=== PATIENT | female | born 1940 | race African-American/Black ===

== ENCOUNTER → 2017-03-29 | Outpatient (CLI) | payer MEDICARE, BC ==
--- NOTE | 2017-03-30 10:10 | RAD ---
DATE: 03/29/2017 EXAM: DIGITAL SCREEN BILAT W/CAD HISTORY: Screening COMPARISON: One year earlier This study was interpreted with the benefit of Computerized Aided Detection (CAD). FINDINGS: Breast Density: SCATTERED The breast parenchyma shows scattered fibroglandular densities. Breast parenchyma level B. There has been little change in the appearance of the breasts compared to the previous exam IMPRESSION: Benign findings BI-RADS CATEGORY: 2 BENIGN FINDING(S) RECOMMENDED FOLLOW-UP: 12M 12 MONTH FOLLOW-UP PQRS compliance statement: Patient information was entered into a reminder system with a target due date 03/29/2018 for the next mammogram. Mammography is a sensitive method for finding small breast cancers, but it does not detect them all and is not a substitute for careful clinical examination. A negative mammogram does not negate a clinically suspicious finding and should not result in delay in biopsying a clinically suspicious abnormality. "Our facility is accredited by the [employer] Mammography Program."
== END | disposition home or self-care (01) ==
LOC: MAMMO 15:04
PROVIDERS: ATTEND Obstetrics & Gynecology
DX: Z12.31 Encounter for screening mammogram for malignant neoplasm of breast (principal)
CPT/HCPCS: G0202; 77067

== ENCOUNTER → 2018-05-23 | Outpatient (CLI) | payer MEDICARE, BC ==
--- NOTE | 2018-05-25 11:49 | RAD ---
DATE: 05/23/2018 EXAM: MAMMO ROSE SCREENING BILATERAL HISTORY: Routine screening COMPARISON: 03/29/2017, 03/28/2016, 03/16/2015, 03/20/2014, 03/26/2013, 03/15/2013 Bilateral CC and MLO views of the breasts were performed. Bilateral breast tomosynthesis was performed in CC and MLO projections. This study was interpreted with the benefit of Computerized Aided Detection (CAD). The breast parenchyma is primarily fatty replaced. Breast parenchyma level density A. FINDINGS: Benign calcifications are present. No suspicious masses, microcalcifications or architectural distortion is present to suggest malignancy in either breast. The visualized axillae are unremarkable. IMPRESSION: No mammographic evidence of malignancy. BI-RADS CATEGORY: 2 BENIGN FINDING(S) RECOMMENDED FOLLOW-UP: 12M 12 MONTH FOLLOW-UP Annual screening mammography is recommended, unless clinically indicated sooner based on symptoms or change in physical exam. PQRS compliance statement: Patient information was entered into a reminder system with a target due date for the next mammogram. Mammography is a sensitive method for finding small breast cancers, but it does not detect them all and is not a substitute for careful clinical examination. A negative mammogram does not negate a clinically suspicious finding and should not result in delay in biopsying a clinically suspicious abnormality. "Our facility is accredited by the [employer] Mammography Program."
== END | disposition home or self-care (01) ==
LOC: MAMMO 15:27
PROVIDERS: ATTEND Nurse Practitioner
DX: Z12.31 Encounter for screening mammogram for malignant neoplasm of breast (principal)
CPT/HCPCS: 77063; 77067

== ENCOUNTER 2018-10-30 15:31 | Emergency (ER) | payer MEDICARE, BC ==
[~2018-10-30] VITALS: Ht 161.3 cm; Wt 113.4 kg
[2018-10-30 16:00] VITALS: BP 161/77
--- NOTE | 2018-10-30 16:03 | PHYS DOC ---
Adult General Chief Complaint Chief Complaint: HIP PAIN HPI HPI Patient is a 78 year old female with a history of hypertension who presents today complaining of 8 out of 10 bilateral knee and hip pain that has been going on for 1 month. Patient states she slipped on ice a month ago and fell landing on her buttocks. Patient denies any loss of consciousness. Denies any chance she hit her head on the ground. She is up and ambulating. She states her daughter would like her to be checked out to make sure everything is okay. She has an appointment with her own PCP next month. (MOJGAN ERICKSON APRN) Review of Systems Review of Systems Constitutional: Denies fever or chills [] Eyes: Denies change in visual acuity, redness, or eye pain [] HENT: Denies nasal congestion or sore throat [] Respiratory: Denies cough or shortness of breath [] Cardiovascular: No additional information not addressed in HPI [] GI: Denies abdominal pain, nausea, vomiting, bloody stools or diarrhea [] : Denies dysuria or hematuria [] Musculoskeletal: Reports bilateral hip and knee pain Integument: Denies rash or skin lesions [] Neurologic: Denies headache, focal weakness or sensory changes [] All other systems were reviewed and found to be within normal limits, except as documented in this note. (MOJGAN ERICKSON APRN) Allergies Allergies Allergies Coded Allergies Type Severity Reaction Last Updated Verified No Known Drug Allergies 10/30/18 No (RAZ DEMPSEY MD) Physical Exam Physical Exam Constitutional: Well developed, well nourished, no acute distress, non-toxic appearance. [] HENT: Normocephalic, atraumatic, bilateral external ears normal, oropharynx moist, no oral exudates, nose normal. [] Eyes: PERRLA, EOMI, conjunctiva normal, no discharge. [] Neck: Normal range of motion, no tenderness, supple, no stridor. [] Cardiovascular:Heart rate regular rhythm, no murmur [] Lungs & Thorax: Bilateral breath sounds clear to auscultation [] Abdomen: Bowel sounds normal, soft, no tenderness, no masses, no pulsatile masses. [] Skin: Warm, dry, no erythema, no rash. [] Back: No tenderness, no CVA tenderness. [] Extremities: No tenderness, no cyanosis, no clubbing, ROM intact, no edema. [] Neurologic: Alert and oriented X 3, normal motor function, normal sensory function, no focal deficits noted. [] Psychologic: Affect normal, judgement normal, mood normal. [] (MOJGAN ERICKSON APRN) Current Patient Data Vital Signs Vital Signs Date Time Temp Pulse Resp B/P (MAP) Pulse Ox O2 Delivery O2 Flow Rate FiO2 10/30/18 16:00 98.0 91 20 161/77 (105) 94 Room Air 98.0 (RAZ DEMPSEY MD) EKG EKG [] (MOJGAN ERICKSON APRN) Radiology/Procedures Radiology/Procedures []PROCEDURE: HIP BILATERAL WITH PELVIS Pelvis and bilateral hip radiographs 10/30/2018 INDICATION: Fall 3 weeks ago. COMPARISON: Hip radiograph September 04, 2007 TECHNIQUE: 2 AP views of the pelvis and single dedicated view of each hip is provided. FINDINGS: Right hip arthroplasty is identified with femoral and acetabular components in expected alignment. There may be subtle lucency along the subtrochanteric lateral aspect of the right proximal femur. Superior and inferior pubic rami are intact. Left total hip arthroplasty is identified with components in the sagittal alignment. No lucency is identified surrounding the hardware. Sacroiliac joints are well aligned. IMPRESSION: There may be subtle lucency along the right lateral subtrochanteric region of the right hip hardware suggestive of fracture. Correlate with site of point tenderness. If there is persistent clinical concern, cross-sectional imaging may be of benefit. Left total hip arthroplasty without evidence for hardware failure or acute fracture. Electronically signed by: Alba Whitfield MD (10/30/2018 4:54 PM) [facility] DICTATED and SIGNED BY: ALBA WHITFIELD MD DATE: 10/30/18 1651 PROCEDURE: KNEE BILAT 3V Bilateral knee radiograph 10/30/2018 INDICATION: Trauma after fall 3 weeks ago. Pain in bilateral knees. COMPARISON: Right knee radiograph July 21, 2009 TECHNIQUE: 3 views of the right and 3 views of the left knee are provided. FINDINGS: Bilateral total knee arthroplasties are identified. Components are in expected alignment. No lucency is identified surrounding the hardware to suggest subsidence or hardware failure. No significant knee joint effusions. Vascular calcification is identified in the left knee. IMPRESSION: Bilateral total knee arthroplasty without evidence for hardware failure or acute fracture. Electronically signed by: Alba Whitfield MD (10/30/2018 4:51 PM) [facility] DICTATED and SIGNED BY: ALBA WHITFIELD MD DATE: 10/30/18 1649 PROCEDURE: CT LOWER EXTREMITY WO RIGHT Examination: CT LOWER EXTREMITY WO RIGHT History: possible right hip fx
FELL ON AUGUST Comparison/Correlation: None Findings: Axial images of the right hip were obtained without contrast. Topogram demonstrates bilateral total hip joint prostheses. No evidence of loosening suggested on basis of the topogram. Streak artifact due to the right hip joint prosthesis can limit evaluation for fine detail. Low lumbar spine vacuum disc phenomenon and vacuum facet joint phenomenon evident. Mild anterolisthesis of L4 in relation L5 is noted. Degenerative changes of symphysis pubis are present. No displaced fracture or bony destructive finding. Soft tissues about the right hip are unremarkable. Appendix is present and normal. Impression: No acute fracture. Right hip joint prosthesis is intact. Electronically signed by: Bernardo Hill MD (10/30/2018 5:30 PM) [facility] DICTATED and SIGNED BY: BERNARDO HILL MD DATE: 10/30/18 1720 (MOJGAN ERICKSON APRN) Course & Med Decision Making Course & Med Decision Making Pertinent Labs and Imaging studies reviewed. (See chart for details) This is a 6-year-old female patient presenting to the ED today with bilateral hip and knee pain that began a month ago after she fell. Patient arrived in the ED ambulating on her own with no difficulties. Bilateral knee x-rays interpreted by radiologist were negative for any acute findings. Bilateral hip x-rays including pelvis interpreted by radiologist were noted for questionable right trochanteric fracture. CT of the right lower extremity was done which was negative for any fracture. Patient was discharged to home to follow-up with orthopedic doctor and PCP. (MOJGAN ERICKSON APRN) Course & Med Decision Making The chart was reviewed. Agree with the plan of care. (RAZ DEMPSEY MD) Dragon Disclaimer Dragon Disclaimer This electronic medical record was generated, in whole or in part, using a voice recognition dictation system. (MOJGAN ERICKSON APRN) Departure Departure Impression: Primary Impression: Fall from standing Additional Impressions: Bilateral knee pain Bilateral hip pain Disposition: HOME, SELF-CARE Condition: STABLE Referrals: [facility] (PCP) follow up as soon as you can Patient Instructions: Fall Prevention and Home Safety, Hip Pain, Knee Pain, [id number] Additional Instructions: You were evaluated in the emergency room for bilateral knee and bilateral hip x- rays, your imaging was negative for any acute findings. Please follow-up with the orthopedic doctor and primary care doctor as soon as you can. Scripts Hydrocodone/Apap 5-325 (NORCO 5-325 TABLET) 1 Each Tablet 1 TAB PO Q8HRS PRN for PAIN, #20 TAB Prov: MOJGAN ERICKSON DIRECTOR OF ACQUISITIONS 10/30/18 Problem Qualifiers Primary Impression: Fall from standing Encounter type: initial encounter Qualified Codes: W19.XXXA - Unspecified fall, initial encounter Additional Impressions: Bilateral knee pain Chronicity: acute Qualified Codes: M25.561 - Pain in right knee; M25.562 - Pain in left knee MOJGAN ERICKSON DIRECTOR OF ACQUISITIONS Oct 30, 2018 16:03 RAZ DEMPSEY MD Oct 31, 2018 10:35
--- NOTE | 2018-10-30 16:55 | RAD ---
Bilateral knee radiograph 10/30/2018 INDICATION: Trauma after fall 3 weeks ago. Pain in bilateral knees. COMPARISON: Right knee radiograph July 21, 2009 TECHNIQUE: 3 views of the right and 3 views of the left knee are provided. FINDINGS: Bilateral total knee arthroplasties are identified. Components are in expected alignment. No lucency is identified surrounding the hardware to suggest subsidence or hardware failure. No significant knee joint effusions. Vascular calcification is identified in the left knee. IMPRESSION: Bilateral total knee arthroplasty without evidence for hardware failure or acute fracture. Electronically signed by: Jazzy Flannery MD (10/30/2018 4:51 PM) [facility]
--- NOTE | 2018-10-30 16:58 | RAD ---
Pelvis and bilateral hip radiographs 10/30/2018 INDICATION: Fall 3 weeks ago. COMPARISON: Hip radiograph September 04, 2007 TECHNIQUE: 2 AP views of the pelvis and single dedicated view of each hip is provided. FINDINGS: Right hip arthroplasty is identified with femoral and acetabular components in expected alignment. There may be subtle lucency along the subtrochanteric lateral aspect of the right proximal femur. Superior and inferior pubic rami are intact. Left total hip arthroplasty is identified with components in the sagittal alignment. No lucency is identified surrounding the hardware. Sacroiliac joints are well aligned. IMPRESSION: There may be subtle lucency along the right lateral subtrochanteric region of the right hip hardware suggestive of fracture. Correlate with site of point tenderness. If there is persistent clinical concern, cross-sectional imaging may be of benefit. Left total hip arthroplasty without evidence for hardware failure or acute fracture. Electronically signed by: Jazzy Flannery MD (10/30/2018 4:54 PM) [facility]
--- NOTE | 2018-10-30 17:35 | RAD ---
Examination: CT LOWER EXTREMITY WO RIGHT History: possible right hip fx
FELL ON AUGUST Comparison/Correlation: None Findings: Axial images of the right hip were obtained without contrast. Topogram demonstrates bilateral total hip joint prostheses. No evidence of loosening suggested on basis of the topogram. Streak artifact due to the right hip joint prosthesis can limit evaluation for fine detail. Low lumbar spine vacuum disc phenomenon and vacuum facet joint phenomenon evident. Mild anterolisthesis of L4 in relation L5 is noted. Degenerative changes of symphysis pubis are present. No displaced fracture or bony destructive finding. Soft tissues about the right hip are unremarkable. Appendix is present and normal. Impression: No acute fracture. Right hip joint prosthesis is intact. Electronically signed by: Bernardo Kumar MD (10/30/2018 5:30 PM) [facility]
[2018-10-30] MEDS ORDERED: HYDR-3164 PO (18:09)
== END 2018-10-30 18:33 | disposition home or self-care (01) ==
LOC: ER 15:31
DX: M25.561 Pain in right knee (principal); M25.562 Pain in left knee; M25.551 Pain in right hip; M25.552 Pain in left hip; G89.11 Acute pain due to trauma; W00.0XXA Fall on same level due to ice and snow, initial encounter; Y93.89 Activity, other specified; Y92.89 Other specified places as the place of occurrence of the external cause; Y99.8 Other external cause status
CPT/HCPCS: 73521; 73562; 73700; 99284-25

== ENCOUNTER → 2019-05-27 | Outpatient (CLI) | payer MEDICARE, BC ==
[~2019-05-27] MED LIST: HYDR-3164 PO
--- NOTE | 2019-05-28 09:46 | RAD ---
DATE: 05/28/2019. EXAM: MAMMO ROSE SCREENING BILATERAL HISTORY: Routine screening. COMPARISON: Previous mammogram from 2018. This study was interpreted with the benefit of Computerized Aided Detection (CAD). FINDINGS: Breast Density: HETERO The breast parenchyma Is heterogeneously dense, which could reduce sensitivity of mammography. Breast parenchyma level C. The skin and nipples are within normal limits. No suspicious calcifications, spiculated mass or area of architectural distortion. IMPRESSION: No mammographic evidence of malignancy. BI-RADS CATEGORY: 2 BENIGN FINDING(S) RECOMMENDED FOLLOW-UP: 12M 12 MONTH FOLLOW-UP PQRS compliance statement: Patient information was entered into a reminder system with a target due date for the next mammogram. Mammography is a sensitive method for finding small breast cancers, but it does not detect them all and is not a substitute for careful clinical examination. A negative mammogram does not negate a clinically suspicious finding and should not result in delay in biopsying a clinically suspicious abnormality. "Our facility is accredited by the [employer] Mammography Program."
== END | disposition home or self-care (01) ==
LOC: MAMMO 13:57
PROVIDERS: ATTEND Internal Medicine
DX: Z12.31 Encounter for screening mammogram for malignant neoplasm of breast (principal)
CPT/HCPCS: 77063; 77067

== ENCOUNTER → 2019-10-10 | Outpatient (CLI) | payer MEDICARE, BC ==
[2019-09-30 15:05] VITALS: BP 148/66
[~2019-10-10] MED LIST changes: +ACET325T9 PO; +ASPI81TA50 PO; +CELE100C PO; +FURO-69 PO; +METO25TA4 PO; +OMEP20TA8 PO; +POTA20TA4 PO; +TRAM50TA PO
--- NOTE | 2019-10-16 18:22 | SLEEP ---
DATE OF STUDY: 10/10/2019 SLEEP STUDY ATTENDING PHYSICIAN: Asher Estes MD REFERRING PHYSICIAN: Fidel Guzman MD The patient is 79 years old who weighs 256 pounds with a BMI of 44. The patient's [place] score was 12. The patient underwent split night study performed at [facility]. During the night study, the patient spent 413 minutes in bed and slept for 345 minutes with a sleep efficiency of 84%. Sleep latency was 7 minutes with a REM latency of 279 minutes. Sleep architecture showed normal stage 1 sleep, increased stage 2 sleep, absent slow wave and reduced REM sleep. During the initial diagnostic portion of the study, the patient slept for 79 minutes. During that time, there were 22 obstructive apneas, 58 mixed apneas, 41 hypopneas and no central apneas. The patient's AHI was 93 per hour, supine AHI 93 per hour. REM sleep was not observed. EKG monitoring revealed normal sinus rhythm. Occasional PVCs seen. Average heart rate 70 beats per minute. No PLMS observed. Nocturnal oximetry study revealed a mean oxygen saturation of 89% with the lowest of 71%. A 49% of time oxygen saturation remained between 80% and 89% and 12% of time between 70% and 79%. The patient met the criteria for CPAP initiation. It was started at 5 cm water and titrated up to 20 cm water. The patient continued to have respiratory events and despite reaching 20 cm water, the patient's AHI was still 59 per hour from 145 minutes of sleep. Oxygen saturations did improve while on CPAP with saturations above 88%. The patient used small size full face mask. IMPRESSION: 1. Severe sleep apnea-hypopnea syndrome at an AHI of 93 per hour. The patient's obstructive sleep apnea did not resolve with maximum CPAP pressure of 20 cm water. 2. No clinically significant periodic limb movements. 3. Nocturnal hypoxia, secondary to obstructive sleep apnea. RECOMMENDATIONS: 1. The patient's sleep apnea was still persistent despite reaching maximum CPAP pressure of 20 cm water on this split night study. I would recommend that the patient should return to the sleep lab for BiPAP titration study, starting at a BiPAP pressure of 16 /12 and following the protocol. 2. Once the patient's chief optimum BiPAP pressure, then follow up in 4-6 weeks to assess compliance with BiPAP and to document clinical improvement. 3. Weight loss is strongly advised. 4. 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 5. Cautioned regarding driving until symptoms of sleep apnea resolved with above recommendations. FIDEL GUZMAN MD DR: ILEANA/ebenezer JOB#: [id number] / [id number] ASHER Carroll MD MTDD
== END | disposition home or self-care (01) ==
LOC: SLPLAB 19:36
PROVIDERS: ATTEND Internal Medicine Critical Care Medicine
DX: G47.33 Obstructive sleep apnea (adult) (pediatric) (principal); G47.34 Idiopathic sleep related nonobstructive alveolar hypoventilation
CPT/HCPCS: 95810

== ENCOUNTER → 2019-11-27 | Outpatient (CLI) | payer MEDICARE, BC ==
[2019-11-11 14:10] VITALS: BP 98/58
[~2019-11-27] MED LIST changes: +PRAV40TA2 PO; +PROP40TA PO; +SPIR25TA PO; +ZOLPIDEM 5 MG TABLET. PO PRN
--- NOTE | 2019-11-28 16:00 | SLEEP ---
DATE OF STUDY: 11/27/2019 REFERRING PHYSICIAN: Asher Estes MD The patient is an 79-year-old who weighs 236 pounds with a BMI of 42. The patient had a previous sleep study and was found to have severe ERINN at an AHI of 93 per hour. Optimum CPAP pressure was not achieved despite reaching 20 cm of water. She returned for a BiPAP titration study. During the night study, the patient spent 409 minutes in bed and slept for 261 minutes with a low sleep efficiency of 64%. Sleep latency was 69 minutes with a REM latency of 125 minutes. Sleep architecture showed normal stage 1 sleep, increased stage 2 sleep, normal slow wave and slightly reduced REM sleep. EKG monitoring revealed an average heart rate of 76 beats per minute. Occasional PVCs seen. No sustained arrhythmias observed. PLMS were seen at index of 55 per hour and 7 per hour caused EEG arousals. The patient was started on BiPAP at a pressure of 18/10. The pressure was increased up to 28/19; however, better results were obtained at a BiPAP pressure of 25/18. The patient slept for 156 minutes. The patient's AHI was reduced to 2 per hour and oxygen saturations remained above 90% with few desaturations in the mid 80s. IMPRESSION: 1. Severe sleep apnea diagnosed by previous sleep study. 2. Nocturnal hypoxia secondary to obstructive sleep apnea, resolved with BiPAP. 3. Severe PLMS. RECOMMENDATIONS: 1. BiPAP at a pressure of 25/18 should be used on a nightly basis. 2. Follow up in 4-6 weeks to assess compliance with BiPAP and to document clinical improvement. 3. Weight loss is strongly advised. 4. 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 5. Cautioned regarding driving until symptoms of sleep apnea resolve with the use of BiPAP. 6. The patient should also be further evaluated for symptoms of restless legs during the day. ZENAIDA ORTIZ MD DR: ILEANA/ebenezer JOB#: [id number] / [id number] [facility] ASHER ESTES MD
== END | disposition home or self-care (01) ==
LOC: RT 20:25
PROVIDERS: ATTEND Internal Medicine Critical Care Medicine
DX: G47.33 Obstructive sleep apnea (adult) (pediatric) (principal); G47.34 Idiopathic sleep related nonobstructive alveolar hypoventilation; G47.61 Periodic limb movement disorder
CPT/HCPCS: 95811

== ENCOUNTER 2020-06-24 17:05 | Inpatient (IN) | payer MEDICARE, BC ==
[~2020-06-24] VITALS: Ht 160 cm; Wt 110.6 kg
[~2020-06-24 17:05] MED LIST changes: -ZOLPIDEM 5 MG TABLET. PO PRN
[2020-06-24 18:03] LABS: BASO % 1 % (0-3); EOS # 0.1 x10^3/uL (0.0-0.7); EOS % 2 % (0-3); HEMATOCRIT 36.8 % (36.0-47.0); HEMOGLOBIN 12.3 g/dL (12.0-15.5); LYMPH # 1.1 x10^3/uL (1.0-4.8); LYMPH % 23 % (24-48); MEAN CORPUSCULAR HEMOGLOBIN 32 pg (25-35); MEAN CORPUSCULAR HGB CONC 33 g/dL (31-37); MEAN CORPUSCULAR VOLUME 95 fL (79-100); MONO # 0.5 x10^3/uL (0.0-1.1); MONO % 10 % (0-9); NEUT % 64 % (31-73); PLATELET COUNT 166 x10^3/uL (140-400); RED BLOOD COUNT 3.88 x10^6/uL (3.50-5.40); RED CELL DISTRIBUTION WIDTH 13.7 % (11.5-14.5); WHITE BLOOD COUNT 4.6 x10^3/uL (4.0-11.0)
[2020-06-24 18:07] LABS: CALCIUM 9.4 mg/dL (8.5-10.1); CREATININE 1.2 mg/dL (0.6-1.0)
[2020-06-24 18:13] LABS: ALBUMIN 3.6 g/dL (3.4-5.0); ALBUMIN/GLOBULIN RATIO 0.9 (1.0-1.7); MAGNESIUM 1.8 mg/dL (1.8-2.4); TOTAL BILIRUBIN 0.7 mg/dL (0.2-1.0); TOTAL PROTEIN 7.6 g/dL (6.4-8.2)
--- NOTE | 2020-06-24 18:20 | PHYS DOC ---
Past Medical History Past Medical History: Anxiety, Arthritis, Cancer, CHF, Depression, Hypertension, Other Additional Past Medical Histor: ovarian cancer Past Surgical History: Hip Replacement, Hysterectomy, Knee Replacement, Other Additional Past Surgical Histo: hemmorhoidectomy, radiation implant, uvula, bilat feet Smoking Status: Never Smoker Alcohol Use: Occasionally Drug Use: None General Adult EDM: Chief Complaint: SHORTNESS OF BREATH HPI: HPI: Patient is a 80 year old female who presents with a chief complaint of progressive shortness of breath. Patient describes orthopnea and dyspnea on exertion. Patient states she had increased swelling in her bilateral lower extremities. Patient denies any fevers chills but has had a mild cough. Patient denies any COVID-19 exposures. Patient denies any chest pain but had some back pain earlier that has since resolved. Symptoms are worse with laying flat and exertion. Pain in her back is nonradiating and currently 0 Review of Systems: Review of Systems: Constitutional: Denies fever or chills. [] Eyes: Denies change in visual acuity. [] HENT: Denies nasal congestion or sore throat. [] Respiratory: Complains of cough and shortness of breath Cardiovascular: Denies chest pain complains of bilateral lower extremity edema GI: Denies abdominal pain, nausea, vomiting, bloody stools or diarrhea. [] : Denies dysuria. [] Musculoskeletal: Denies current back pain or joint pain. [] Integument: Denies rash. [] Neurologic: Denies headache, focal weakness or sensory changes. [] Endocrine: Denies polyuria or polydipsia. [] Lymphatic: Denies swollen glands. [] Psychiatric: Denies depression or anxiety. [] Heart Score: Risk Factors: Risk Factors: DM, Current or recent (<one month) smoker, HTN, HLP, family history of CAD, obesity. Risk Scores: Score 0 - 3: 2.5% MACE over next 6 weeks - Discharge Home Score 4 - 6: 20.3% MACE over next 6 weeks - Admit for Clinical Observation Score 7 - 10: 72.7% MACE over next 6 weeks - Early Invasive Strategies Allergies: Allergies: Allergies Coded Allergies Type Severity Reaction Last Updated Verified sertraline Adverse Reaction Intermediate hallucinations 11/04/19 Yes Physical Exam: PE: Constitutional: Well developed, well nourished, no acute distress, non-toxic appearance. [] HENT: Normocephalic, atraumatic, bilateral external ears normal, no trismus, nose normal. [] Eyes: PERRLA, EOMI, conjunctiva normal, no discharge. [] Neck: Normal range of motion, no tenderness, supple, no stridor. [] Cardiovascular:Heart rate regular rhythm, peripheral pulse intact, cap refill brisk Lungs & Thorax: Diminished bilateral breath sounds Abdomen: Bowel sounds normal, soft, no tenderness, no masses, no pulsatile masses. [] Skin: Warm, dry, no erythema, no rash. [] Back: No tenderness, no CVA tenderness. [] Extremities: No tenderness, no cyanosis, no clubbing, ROM intact, 2+ bilateral extremity edema Neurologic: Alert and oriented X 3, normal motor function, normal sensory function, no focal deficits noted. [] Psychologic: Affect normal, judgement normal, mood normal. [] Current Patient Data: Labs: Laboratory Tests Test 06/24/20 17:50 White Blood Count 4.6 x10^3/uL (4.0-11.0) Red Blood Count 3.88 x10^6/uL (3.50-5.40) Hemoglobin 12.3 g/dL (12.0-15.5) Hematocrit 36.8 % (36.0-47.0) Mean Corpuscular Volume 95 fL (79-100) Mean Corpuscular Hemoglobin 32 pg (25-35) Mean Corpuscular Hemoglobin Concent 33 g/dL (31-37) Red Cell Distribution Width 13.7 % (11.5-14.5) Platelet Count 166 x10^3/uL (140-400) Neutrophils (%) (Auto) 64 % (31-73) Lymphocytes (%) (Auto) 23 % (24-48) L Monocytes (%) (Auto) 10 % (0-9) H Eosinophils (%) (Auto) 2 % (0-3) Basophils (%) (Auto) 1 % (0-3) Neutrophils # (Auto) 3.0 x10^3/uL (1.8-7.7) Lymphocytes # (Auto) 1.1 x10^3/uL (1.0-4.8) Monocytes # (Auto) 0.5 x10^3/uL (0.0-1.1) Eosinophils # (Auto) 0.1 x10^3/uL (0.0-0.7) Basophils # (Auto) 0.0 x10^3/uL (0.0-0.2) Sodium Level 141 mmol/L (136-145) Potassium Level 4.0 mmol/L (3.5-5.1) Chloride Level 105 mmol/L (98-107) Carbon Dioxide Level 30 mmol/L (21-32) Anion Gap 6 (6-14) Blood Urea Nitrogen 17 mg/dL (7-20) Creatinine 1.2 mg/dL (0.6-1.0) H Estimated GFR (Cockcroft-Gault) 52.0 BUN/Creatinine Ratio 14 (6-20) Glucose Level 136 mg/dL (70-99) H Calcium Level 9.4 mg/dL (8.5-10.1) Magnesium Level 1.8 mg/dL (1.8-2.4) Total Bilirubin 0.7 mg/dL (0.2-1.0) Aspartate Amino Transferase (AST) 30 U/L (15-37) Alanine Aminotransferase (ALT) 37 U/L (14-59) Alkaline Phosphatase 117 U/L (46-116) H Total Protein 7.6 g/dL (6.4-8.2) Albumin 3.6 g/dL (3.4-5.0) Albumin/Globulin Ratio 0.9 (1.0-1.7) L Laboratory Tests 06/24/20 17:50 Laboratory Tests 06/24/20 17:50 EKG: EKG: [] EKG interpreted by hi normal sinus rhythm with a left axis deviation and low voltage, nonspecific ST changes normal intervals Radiology/Procedures: Radiology/Procedures: [][facility] [address] [place] [address] IMAGING REPORT Signed PATIENT: BRENT STRONG ACCOUNT: [id number] : 1940 LOCATION: ER AGE: 80 SEX: F EXAM STATUS: REG ER ORD. PHYSICIAN: JERO SALAZAR MD REASON: edema PROCEDURE: VENOUS LOWER EXT BILATERAL EXAM: Bilateral lower extremity venous Doppler. HISTORY: Bilateral lower extremity pain/swelling. Shortness of breath. COMPARISON: None. FINDINGS: Grayscale and Doppler analysis of the both lower extremity deep venous systems was performed with graded compression and augmentation. The common femoral, greater saphenous, superficial femoral, popliteal and calf veins were assessed. There is no evidence of deep venous thrombosis. Subcutaneous edema is noted. IMPRESSION: 1. No evidence of deep venous thrombosis. Electronically signed by: Feliciano Jara MD (06/24/2020 7:06 PM) [facility] DI[facility]ATED and SIGNED BY: EUGENE JARA MD DATE: 06/24/201905 [facility] [address] [place] [address] IMAGING REPORT Signed PATIENT: BRENT STRONG ACCOUNT: [id number] : 1940 LOCATION: ER AGE: 80 SEX: F EXAM STATUS: REG ER ORD. PHYSICIAN: SHENG LEROY DO REASON: dyspnea PROCEDURE: PORTABLE CHEST 1V EXAM: AP View of the chest DATE: 06/24/2020 5:21 PM INDICATION: Reason: dyspnea / Spl. Instructions: / History: COMPARISON: 11/04/2019, 09/26/2019 FINDINGS: Moderate cardiomegaly is stable. Atherosclerotic calcifications of the tortuous aorta are seen. Bilateral pleural effusions and associated lung base opacities are now seen. Mild perihilar opacities with interstitial prominence. No pneumothorax. IMPRESSION: Constellation of findings is suspicious for pulmonary edema or multifocal consolidative process. Electronically signed by: Marino Tomlinson MD (06/24/2020 6:59 PM) [facility] DICTATED and SIGNED BY: MARINO TOMLINSON MD DATE: 06/24/20 515 Course & Med Decision Making: Course & Med Decision Making Pertinent Labs and Imaging studies reviewed. (See chart for details) [] 80-year-old female presents with CHF symptoms. Patient has a slightly positive troponin and evidence of CHF on x-ray and labs. Patient be admitted to Dr. Beckham with a cardiac consult. Patient needs echo to rule out pericardial effusion as well as to assess ejection fraction. aJson Disclaimer: Jason Disclaimer: This electronic medical record was generated, in whole or in part, using a voice recognition dictation system. Departure Departure Impression: Primary Impression: CHF (congestive heart failure) Disposition: 09 ADMITTED INPATIENT Admitting Physician: MADAI romero) Condition: STABLE Referrals: ASHER CHEW MD (PCP) Justicifation of Admission Dx: Justifications for Admission: Justification of Admission Dx: Yes (chf, positive troponin) JERO SALAZAR MD Jun 24, 2020 18:20
[2020-06-24] MEDS ORDERED: FUROSEMIDE 40 MG/4 ML VIAL. IVP ONE (18:30)
[2020-06-24] MEDS ORDERED: ASPIRIN 325 MG TABLET PO ONE (18:30)
[2020-06-24] MEDS ORDERED: ONDANSETRON PF 4 MG/2 ML VIAL. IV PRN (18:45)
--- NOTE | 2020-06-24 19:02 | RAD ---
EXAM: AP View of the chest DATE: 06/24/2020 5:21 PM INDICATION: Reason: dyspnea / Spl. Instructions: / History: COMPARISON: 11/04/2019, 09/26/2019 FINDINGS: Moderate cardiomegaly is stable. Atherosclerotic calcifications of the tortuous aorta are seen. Bilateral pleural effusions and associated lung base opacities are now seen. Mild perihilar opacities with interstitial prominence. No pneumothorax. IMPRESSION: Constellation of findings is suspicious for pulmonary edema or multifocal consolidative process. Electronically signed by: Marino Loja MD (06/24/2020 6:59 PM) [facility]
--- NOTE | 2020-06-24 19:09 | RAD ---
EXAM: Bilateral lower extremity venous Doppler. HISTORY: Bilateral lower extremity pain/swelling. Shortness of breath. COMPARISON: None. FINDINGS: Grayscale and Doppler analysis of the both lower extremity deep venous systems was performed with graded compression and augmentation. The common femoral, greater saphenous, superficial femoral, popliteal and calf veins were assessed. There is no evidence of deep venous thrombosis. Subcutaneous edema is noted. IMPRESSION: 1. No evidence of deep venous thrombosis. Electronically signed by: Feliciano Jara MD (06/24/2020 7:06 PM) [facility]
[2020-06-24 22:03] VITALS: BP 152/84
[2020-06-24] MEDS ORDERED: FURO40TA4 PO (22:09)
[2020-06-24] MEDS ORDERED: PROP60CA44 PO (22:35)
[2020-06-24] MEDS ORDERED: SPIR25TA5 PO (22:35)
[2020-06-24] MEDS ORDERED: POTA20TA4 PO (22:37)
--- NOTE | 2020-06-24 22:53 | EKG ---
[facility] [address] [place] [address] Test Date: 2020-06-24 Test Time: 18:09:06 Pat Name: BRENT STRONG Department: Room: 200 1 Gender: F [employer] Weaver: [id number] : 1940 Requested By: SHENG LEROY Order Number: [id number] Reading MD: Rock Mosqueda MD Measurements Intervals [place] Rate: 67 P: 90 CT: 204 QRS: -28 QRSD: 82 T: 70 QT: 420 QTc: 447 Interpretive Statements SINUS RHYTHM Electronically Signed On 06-25-2020 12:09:48 CDT by Rock Mosqueda MD
[2020-06-25 03:00] VITALS: BP 130/75
[2020-06-25] MEDS ORDERED: ACETAMINOPHEN 325 MG TABLET. PO PRN (05:00)
--- NOTE | 2020-06-25 05:35 | NUR ---
Patient arrived to unit at approx 2200 accompanied by senior technical architect. Patient on 2L NC for SOB on exertion and at rest. Patient reports no pain at this time. Assessment complete, VS stable. Patients daughter took all of her belongings home except for 1 ring. Patient states that she wishes to be DNR. Spoke with Dr. Beckham and made Pt DNR status, with two nurse verification (Leslee, RN & Abraham RN). patient reports that she uses a CPAP at home at , but is unsure if she has Sleep Apnea. Bed in low locked position, call light in reach, bed alarm on, Reminded patient to call for assistance before ambulating. Will continue to monitor.
[2020-06-25 07:00] VITALS: BP 155/74
[2020-06-25 07:50] LABS: BASO % 1 % (0-3); EOS # 0.1 x10^3/uL (0.0-0.7); EOS % 3 % (0-3); HEMATOCRIT 33.2 % (36.0-47.0); HEMOGLOBIN 11.3 g/dL (12.0-15.5); LYMPH # 1.1 x10^3/uL (1.0-4.8); LYMPH % 28 % (24-48); MEAN CORPUSCULAR HEMOGLOBIN 33 pg (25-35); MEAN CORPUSCULAR HGB CONC 34 g/dL (31-37); MEAN CORPUSCULAR VOLUME 96 fL (79-100); MONO # 0.5 x10^3/uL (0.0-1.1); MONO % 13 % (0-9); NEUT # 2.3 x10^3/uL (1.8-7.7); NEUT % 56 % (31-73); PLATELET COUNT 139 x10^3/uL (140-400); RED BLOOD COUNT 3.45 x10^6/uL (3.50-5.40); RED CELL DISTRIBUTION WIDTH 13.4 % (11.5-14.5); WHITE BLOOD COUNT 4.1 x10^3/uL (4.0-11.0)
[2020-06-25 08:13] LABS: CREATININE 1.1 mg/dL (0.6-1.0); GFR 57.5; POTASSIUM 3.9 mmol/L (3.5-5.1)
[2020-06-25] MEDS: ACETAMINOPHEN 325 MG TABLET. PO SCH ×2 (08:19→21:00)
[2020-06-25] MEDS: POTASSIUM CHLORIDE 20 MEQ TABLET.ER. PO SCH (08:20)
[2020-06-25] MEDS: ASPIRIN ENTERIC COATED 81 MG TABLET.DR. PO SCH (08:20)
[2020-06-25] MEDS: PROPRANOLOL ER 60 MG CAP.SA.24H. PO SCH (08:20)
[2020-06-25] MEDS: SPIRONOLACTONE 25 MG TABLET PO SCH (08:20)
[2020-06-25] MEDS: traMADol 50 MG TABLET PO SCH ×2 (08:23→21:31)
[2020-06-25] MEDS ORDERED: FUROSEMIDE 40 MG TABLET. PO SCH (09:00)
--- NOTE | 2020-06-25 09:56 | PDOC2 ---
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 Mix SOURCE Source: Chart review, Patient HISTORY OF PRESENT ILLNESS HISTORY OF PRESENT ILLNESS This is an 80 yo female who presented secondary to shortness of breath and LE edema. Patient reports she has been eating a lot of watermelon and cantaloupe recently. Noticed that he feet began swelling last week. Progressively worsened. Began feeling short of breath 2 days ago. Progressively worsened as well. Became significantly short of breath so she came to the ED for further evaluation and treatment. Symptoms associated with orthopnea. No chest pain, palpitations, dizziness, diaphoresis, or nausea/vomiting. PAST MEDICAL HISTORY Past Medical History Cardiovascular: CHF, HTN, Other (cor pulmonale; PAFIB ; recent small pericardial effusion) CENTRAL NERVOUS SYSTEM: Other (No pertinent history) GI: GERD Heme/Onc: No pertinent hx Hepatobiliary: No pertinent hx Psych: Anxiety Musculoskeletal: Osteoarthritis Rheumatologic: No pertinent hx Infectious disease: No pertinent hx ENT: No pertinent hx Renal/: UTI Endocrine: No pertinent hx Dermatology: No pertinent hx PAST SURGICAL HISTORY Past Surgical History: Tonsillectomy FAMILY HISTORY Family History: Heart Disease, Hypertension SOCIAL HISTORY Social History Smoke: No ALCOHOL: none Drugs: None Lives: with Family CURRENT MEDICATIONS CURRENT MEDICATIONS Current Medications Medications (Trade) Dose Ordered Sig/Moe Route PRN Reason Start Time Stop Time Status Last Admin Dose Admin Furosemide (Lasix) 40 mg 1X ONCE IVP 06/24/20 18:30 06/24/20 18:31 DC 06/24/20 19:03 Aspirin (Maddy Aspirin) 325 mg 1X ONCE PO 06/24/20 18:30 06/24/20 18:31 DC 06/24/20 19:02 Ondansetron HCl (Zofran) 4 mg PRN Q8HRS PRN IV NAUSEA/VOMITING 06/24/20 18:45 06/25/20 18:44 06/24/20 19:03 Acetaminophen (Tylenol) 325 mg BID PO 06/25/20 09:00 06/25/20 08:19 Aspirin (Ecotrin) 81 mg DAILYWBKFT PO 06/25/20 08:00 06/25/20 08:20 Furosemide (Lasix) 40 mg DAILY PO 06/25/20 09:00 06/25/20 08:20 Potassium Chloride (Klor-Con) 20 meq DAILYWBKFT PO 06/25/20 08:00 06/25/20 08:20 Propranolol HCl (Inderal La) 60 mg DAILY PO 06/25/20 09:00 06/25/20 08:20 Spironolactone (Aldactone) 25 mg DAILY PO 06/25/20 09:00 06/25/20 08:20 Tramadol HCl (Ultram) 37.5 mg BID PO 06/25/20 09:00 06/25/20 08:23 Acetaminophen (Tylenol) 650 mg PRN Q6HRS PRN PO PAIN 06/25/20 05:00 06/25/20 05:10 ALLERGIES ALLERGIES: Coded Allergies: sertraline (Verified Adverse Reaction, Intermediate, hallucinations, 11/04/19) ROS Review of System 14 point ROS conducted with pertinent positives noted above in HPI PHYSICAL EXAM PHYSICAL EXAM General: Alert, Oriented X3, Cooperative, mild distress HEENT: Atraumatic, Mucous membr. moist/pink Lungs: bibasilar crackles Heart: Regular rate (SR), Other 2/6 systolic murmur to LLS border) Abdomen: Soft, No tenderness, Other (obese) Extremities: No cyanosis, Other (3+ bilateral LE pitting edema) Skin: No breakdown, No significant lesion Neuro: Normal speech, Sensation intact Psych/Mental Status: Mental status NL, Mood NL MUSCULOSKELETAL: Osteoarthritic changes both hands VITALS/I&O VITALS/I&O: Vital Signs Date Time Temp Pulse Resp B/P (MAP) Pulse Ox O2 Delivery O2 Flow Rate FiO2 06/25/20 08:20 63 130/75 06/25/20 08:00 Nasal Cannula 2.0 06/25/20 07:00 97.7 20 96 97.7 I & O 06/24/20 06/24/20 06/25/20 15:00 23:00 07:00 Intake Total 50 ml Output Total 1150 ml Balance -1100 ml LABS Lab: Laboratory Tests Test 06/24/20 17:50 06/25/20 06:00 White Blood Count 4.6 x10^3/uL (4.0-11.0) 4.1 x10^3/uL (4.0-11.0) Red Blood Count 3.88 x10^6/uL (3.50-5.40) 3.45 x10^6/uL (3.50-5.40) L Hemoglobin 12.3 g/dL (12.0-15.5) 11.3 g/dL (12.0-15.5) L Hematocrit 36.8 % (36.0-47.0) 33.2 % (36.0-47.0) L Mean Corpuscular Volume 95 fL (79-100) 96 fL (79-100) Mean Corpuscular Hemoglobin 32 pg (25-35) 33 pg (25-35) Mean Corpuscular Hemoglobin Concent 33 g/dL (31-37) 34 g/dL (31-37) Red Cell Distribution Width 13.7 % (11.5-14.5) 13.4 % (11.5-14.5) Platelet Count 166 x10^3/uL (140-400) 139 x10^3/uL (140-400) L Neutrophils (%) (Auto) 64 % (31-73) 56 % (31-73) Lymphocytes (%) (Auto) 23 % (24-48) L 28 % (24-48) Monocytes (%) (Auto) 10 % (0-9) H 13 % (0-9) H Eosinophils (%) (Auto) 2 % (0-3) 3 % (0-3) Basophils (%) (Auto) 1 % (0-3) 1 % (0-3) Neutrophils # (Auto) 3.0 x10^3/uL (1.8-7.7) 2.3 x10^3/uL (1.8-7.7) Lymphocytes # (Auto) 1.1 x10^3/uL (1.0-4.8) 1.1 x10^3/uL (1.0-4.8) Monocytes # (Auto) 0.5 x10^3/uL (0.0-1.1) 0.5 x10^3/uL (0.0-1.1) Eosinophils # (Auto) 0.1 x10^3/uL (0.0-0.7) 0.1 x10^3/uL (0.0-0.7) Basophils # (Auto) 0.0 x10^3/uL (0.0-0.2) 0.0 x10^3/uL (0.0-0.2) Sodium Level 141 mmol/L (136-145) 144 mmol/L (136-145) Potassium Level 4.0 mmol/L (3.5-5.1) 3.9 mmol/L (3.5-5.1) Chloride Level 105 mmol/L (98-107) 104 mmol/L (98-107) Carbon Dioxide Level 30 mmol/L (21-32) 31 mmol/L (21-32) Anion Gap 6 (6-14) 9 (6-14) Blood Urea Nitrogen 17 mg/dL (7-20) 15 mg/dL (7-20) Creatinine 1.2 mg/dL (0.6-1.0) H 1.1 mg/dL (0.6-1.0) H Estimated GFR (Cockcroft-Gault) 52.0 57.5 BUN/Creatinine Ratio 14 (6-20) Glucose Level 136 mg/dL (70-99) H 77 mg/dL (70-99) Calcium Level 9.4 mg/dL (8.5-10.1) 9.0 mg/dL (8.5-10.1) Magnesium Level 1.8 mg/dL (1.8-2.4) Total Bilirubin 0.7 mg/dL (0.2-1.0) Aspartate Amino Transferase (AST) 30 U/L (15-37) Alanine Aminotransferase (ALT) 37 U/L (14-59) Alkaline Phosphatase 117 U/L (46-116) H Troponin I Quantitative 0.100 ng/mL (0.000-0.055) 0.130 ng/mL (0.000-0.055) XA-Hon-K-Type Natriuretic Peptide 7680 pg/mL (0-449) H Total Protein 7.6 g/dL (6.4-8.2) Albumin 3.6 g/dL (3.4-5.0) Albumin/Globulin Ratio 0.9 (1.0-1.7) L Laboratory Tests 06/24/20 17:50 06/25/20 06:00 Laboratory Tests 06/24/20 17:50 06/25/20 06:00 ECHOCARDIOGRAM ECHOCARDIOGRAM <Conclusion> The left ventricular systolic function is normal and the ejection fraction is within normal range. EF 55% Septal motion suggestive of conduction defect. Grossly normal wall motion. The right ventricle is moderately to severely dilated. The right ventricle is moderately hypertrophied. Doppler and Color Flow revealed mild tricuspid regurgitation with an estimated PAP of 67 mmHg, consistent with severe pulmonary HTN There is a small circumferential pericardial effusion without hemodynamic effects DATE: 09/16/19 1540 HEART CATH HEART CATH FINDINGS A. RIGHT HEART CATHETERIZATION 1. Intracardiac pressures: Mean right atrial pressure 15 mmHg, right ventricle pressure 70/4 mmHg, pulmonary artery pressure 76/29 mmHg, mean PA pressure 46 mmHg and mean pulmonary capillary wedge pressure 23 mmHg. This is consistent with moderate coronary hypertension. Patient also has elevated left-sided filling pressures with mean PCWP 23 mm working, probably from acute on chronic diastolic heart failure. 2. Oxygen saturations: Right atrium 69%, pulmonary artery 74%, arterial sheath 98.7%. No evidence of intracardiac shunt. 3. Cardiac output by thermodilution method 5.3 L/m and by Yesika method 4.97 L/m. B. LEFT HEART CATHETERIZATION 1. Hemodynamics: Left ventricle end diastolic pressure 25 mmHg. No pullback gradient across the aortic valve. 2. Coronary angiography: a. The left main coronary artery arose from the left sinus of Valsalva, gave rise to the left anterior descending and left circumflex arteries and did not show any significant stenosis. b. The left anterior descending artery did not show any significant stenosis. c. The left circumflex artery was a large and dominant vessel that did not show any significant stenosis. d. The right coronary artery was a small and nondominant vessel that did not show any significant stenosis. Conclusion 1. No significant coronary artery disease 2. Moderate pulmonary hypertension 3. No evidence of intracardiac shunt 4. Elevated left-sided filling pressures consistent with acute on chronic diastolic heart failure Recommendations Medical Therapy DATE: 09/30/19 1435 ASSESSMENT/PLAN ASSESSMENT/PLAN 1. Acute respiratory failure with acute on chronic diastolic CHF; LVEF 50% per echo 09/26. Secondary to diet noncompliance 2. Cor pulmonale with severe pulmonary HTN; PAP 67 mmHg 3. ERINN 4. Hypertension; controlled overall 5. Hyperlipidemia; statin 6. PAFIB; maintain SR 7. Mild troponin elevation; highest 0.130. Most probably type II, demand ischemia in setting of acute CHF. CP free. Recent cath without evidence of CAD as noted above 8. CKD; at baseline per review Recommendations Diuresis with monitoring of renal function 2Gm Na diet, 2000cc FR Encouraged weight loss Supportive care Routine outpatient echo to assess LV systolic function LESLIE ALVARADO MD 06/25/20 1628: CARDIAC CONSULT ASSESSMENT/PLAN ASSESSMENT/PLAN Pt. seen and examined. Agree with above MANAGER SPECIAL EVENTS note. Continue diuresis. ALETA BERRY APRN Jun 25, 2020 09:56 LESLIE ALVARADO MD Jun 25, 2020 16:28
[2020-06-25] MEDS: FUROSEMIDE 40 MG/4 ML VIAL. IVP SCH ×2 (10:28→14:42)
--- NOTE | 2020-06-25 10:52 | PDOC1 ---
History and Physical Date of Admission Date of Admission DATE: 06/25/20 TIME: 10:52 Source Source: Patient History of Present Illness History of Present Illness Ms Haji is an 80 yo female w/ PMHx HTN, GERD, paroxysmal afib, diastolic CHF, cor pulmonarle who presented secondary to shortness of breath and LE edema. She has also noted weight gain over the past 2 days. Eating a lot of watermelon and cantaloupe recently and drinking more fluids. She notes progressive orthopnea over the past week as well. Denies chest pain, palpitations, dizziness, diaphoresis, or nausea/vomiting. She does note back pain, only while laying flat. Labs significant for troponin 0.130 and BNP 7680, Hb 11.3, Cr 1.1. Venous dopplers negative for DVT, CXR with bilateral pleural effusions and associated perihilar opacities with interstitial prominence as well as cardiomegaly. EKG sinus rhythm with no abnormal st segment changes or TWI. Left axis deviation noted. Admitted for further care. Past Medical History Cardiovascular: CHF, HTN, Other CENTRAL NERVOUS SYSTEM: Other GI: GERD Heme/Onc: No pertinent hx Hepatobiliary: No pertinent hx Psych: Anxiety Musculoskeletal: Osteoarthritis Rheumatologic: No pertinent hx Infectious disease: No pertinent hx Renal/: UTI Endocrine: No pertinent hx Past Surgical History Past Surgical History: Tonsillectomy Family History Family History: Heart Disease, Hypertension Social History Smoke: No ALCOHOL: none Drugs: None Current Problem List Problem List Problems Medical Problems: (1) CHF (congestive heart failure) Status: Acute Current Medications Current Medications Current Medications Furosemide (Lasix) 40 mg 1X ONCE IVP Last administered on 06/24/20at 19:03; Start 06/24/20 at 18:30; Stop 06/24/20 at 18:31; Status DC Aspirin (Maddy Aspirin) 325 mg 1X ONCE PO Last administered on 06/24/20at 19:02; Start 06/24/20 at 18:30; Stop 06/24/20 at 18:31; Status DC Ondansetron HCl (Zofran) 4 mg PRN Q8HRS PRN IV NAUSEA/VOMITING Last administered on 06/24/20at 19:03; Start 06/24/20 at 18:45; Stop 06/25/20 at 18:44 Acetaminophen (Tylenol) 325 mg BID PO Last administered on 06/25/20at 08:19; Start 06/25/20 at 09:00 Aspirin (Ecotrin) 81 mg DAILYWBKFT PO Last administered on 06/25/20at 08:20; Start 06/25/20 at 08:00 Furosemide (Lasix) 40 mg DAILY PO Last administered on 06/25/20at 08:20; Start 06/25/20 at 09:00; Stop 06/25/20 at 10:11; Status DC Potassium Chloride (Klor-Con) 20 meq DAILYWBKFT PO Last administered on 06/25/20at 08:20; Start 06/25/20 at 08:00 Propranolol HCl (Inderal La) 60 mg DAILY PO Last administered on 06/25/20at 08:20; Start 06/25/20 at 09:00 Spironolactone (Aldactone) 25 mg DAILY PO Last administered on 06/25/20at 08:20; Start 06/25/20 at 09:00 Tramadol HCl (Ultram) 37.5 mg BID PO Last administered on 06/25/20at 08:23; S tart 06/25/20 at 09:00 Pantoprazole Sodium (Protonix) 40 mg HS PO ; Start 06/25/20 at 21:00 Atorvastatin Calcium (Lipitor) 10 mg QHS PO ; Start 06/25/20 at 21:00 Acetaminophen (Tylenol) 650 mg PRN Q6HRS PRN PO PAIN Last administered on 06/25/20at 05:10; Start 06/25/20 at 05:00 Furosemide (Lasix) 40 mg BID92 IVP Last administered on 06/25/20at 10:28; Start 06/25/20 at 10:15 Active Scripts Active Reported Klor-Con M20 (Potassium Chloride) 20 Meq Tab.er.prt 20 Meq PO DAILY Propranolol Hcl 60 Mg Cap.sa.24h 60 Mg PO DAILY Spironolactone 25 Mg Tablet 1 Tab PO DAILY Furosemide 40 Mg Tablet 1 Tab PO DAILY Pravastatin Sodium 40 Mg Tablet 1 Tab PO QHS Celebrex (Celecoxib) 100 Mg Capsule 2 Cap PO DAILY Omeprazole 20 Mg Tablet.dr 1 Tab PO HS Tylenol (Acetaminophen) 325 Mg Tablet 1 Tab PO BID Tramadol Hcl 50 Mg Tablet 37.5 Mg PO BID Aspir-Low (Aspirin) 81 Mg Tablet.dr 1 Tab PO DAILY Allergies Allergies: Coded Allergies: sertraline (Verified Adverse Reaction, Intermediate, hallucinations, 11/04/19) ROS General: YES: Fatigue, Malaise; No: Chills, Night Sweats, Appetite, Other PSYCHOLOGICAL ROS: No: Anxiety, Behavioral Disorder, Concentration difficultie, Decreased libido, Depression, Disorientation, Hallucinations, Hostility, Ir ritablity, Memory difficulties, Mood Swings, Obsessive thoughts, Physical abuse, Sexual abuse, Sleep disturbances, Suicidal ideation, Other Eyes: No Blurry vision, No Decreased vision, No Double vision, No Dry eyes, No Excessive tearing, No Eye Pain, No Itchy Eyes, No Loss of vision, No Photophobia, No Scotomata, No Uses contacts, No Uses glasses, No Other HEENT: No: Heacaches, Visual Changes, Hearing change, Nasal congestion, Nasal discharge, Oral lesions, Sinus pain, Sore Throat, Epistaxis, Sneezing, Snoring, Tinnitus, Vertigo, Vocal changes, Other ALLERGY AND IMMUNOLOGY: No: Hives, Insect Bite Sensitivity, Itchy/Watery Eyes, Nasal Congestion, Post Nasal Drip, Seasonal Allergies, Other Hematological and Lymphatic: No: Bleeding Problems, Blood Clots, Blood Transfusions, Brusing, Night Sweats, Pallor, Swollen Lymph Nodes, Other ENDOCRINE: No: Breast Changes, Galactorrhea, Hair Pattern Changes, Hot Flashes, Malaise/lethargy, Mood Swings, Palpitations, Polydipsia/polyuria, Skin Changes, Temperature Intolerance, Unexpected Weight Changes, Other Breast: No New/Changing Breast Lumps, No Nipple changes, No Nipple discharge, No Other Respiratory: YES: Cough, Orthopnea, Shortness of breath, SOB with excertion; No: Hemoptysis, Pleuritic Pain, Sputum Changes, Stridor, Tachypnea, Wheezing, Other Cardiovascular: yes Orthopnea, yes Paroxysmal Noc. Dyspnea, yes Edema; No Chest Pain, No Palpitations, No Lt Headedness, No Other Gastrointestinal: No Nausea, No Vomiting, No Abdominal Pain, No Diarrhea, No Constipation, No Melena, No Hematochezia, No Other Genitourinary: No Dysuria, No Frequency, No Incontinence, No Hematuria, No Retention, No Discharge, No Urgency, No Pain, No Flank Pain, No Other, No , No , No , No , No , No , No Musculoskeletal: No Gait Disturbance, No Joint Pain, No Joint Stiffness, No Joint Swelling, No Muscle Pain, No Muscular Weakness, No Pain In:, No Swelling In:, No Other Neurological: No Behavorial Changes, No Bowel/Bladder ControlChng, No Confusion, No Dizziness, No Gait Disturbance, No Headaches, No Impaired Coord/balance, No Memory Loss, No Numbness/Tingling, No Seizures, No Speech Problems, No Tremors, No Visual Changes, No Weakness, No Other Skin: No Dry Skin, No Eczema, No Hair Changes, No Lumps, No Mole Changes, No Mottling, No Nail Changes, No Pruritus, No Rash, No Skin Lesion Changes, No Other, No Acne Physical Exam General: Alert, Oriented X3, Cooperative, mild distress HEENT: Atraumatic, PERRLA, EOMI, Mucous membr. moist/pink Lungs: Other (Bibasilar crackles) Heart: S1S2, RRR, no thrills, no rubs Abdomen: Normal bowel sounds, Soft, No tenderness, No hepatosplenomegaly, No ma sses Rectal Exam: not examined Extremities: No clubbing, No cyanosis, Normal pulses, No tenderness/swelling, Other (3+ edema) Skin: No rashes, No breakdown, No significant lesion Neuro: Normal gait, Normal speech, Strength at 5/5 X4 ext, Normal tone, Sensation intact, Cranial nerves 3-12 NL, Reflexes 2+ Psych/Mental Status: Mental status NL, Mood NL Vitals Vitals Vital Signs Date Time Temp Pulse Resp B/P (MAP) Pulse Ox O2 Delivery O2 Flow Rate FiO2 06/25/20 08:20 63 130/75 06/25/20 08:00 Nasal Cannula 2.0 06/25/20 07:00 97.7 20 96 97.7 Labs Labs Laboratory Tests Test 06/24/20 17:50 06/25/20 06:00 White Blood Count 4.6 x10^3/uL (4.0-11.0) 4.1 x10^3/uL (4.0-11.0) Red Blood Count 3.88 x10^6/uL (3.50-5.40) 3.45 x10^6/uL (3.50-5.40) Hemoglobin 12.3 g/dL (12.0-15.5) 11.3 g/dL (12.0-15.5) Hematocrit 36.8 % (36.0-47.0) 33.2 % (36.0-47.0) Mean Corpuscular Volume 95 fL (79-100) 96 fL (79-100) Mean Corpuscular Hemoglobin 32 pg (25-35) 33 pg (25-35) Mean Corpuscular Hemoglobin Concent 33 g/dL (31-37) 34 g/dL (31-37) Red Cell Distribution Width 13.7 % (11.5-14.5) 13.4 % (11.5-14.5) Platelet Count 166 x10^3/uL (140-400) 139 x10^3/uL (140-400) Neutrophils (%) (Auto) 64 % (31-73) 56 % (31-73) Lymphocytes (%) (Auto) 23 % (24-48) 28 % (24-48) Monocytes (%) (Auto) 10 % (0-9) 13 % (0-9) Eosinophils (%) (Auto) 2 % (0-3) 3 % (0-3) Basophils (%) (Auto) 1 % (0-3) 1 % (0-3) Neutrophils # (Auto) 3.0 x10^3/uL (1.8-7.7) 2.3 x10^3/uL (1.8-7.7) Lymphocytes # (Auto) 1.1 x10^3/uL (1.0-4.8) 1.1 x10^3/uL (1.0-4.8) Monocytes # (Auto) 0.5 x10^3/uL (0.0-1.1) 0.5 x10^3/uL (0.0-1.1) Eosinophils # (Auto) 0.1 x10^3/uL (0.0-0.7) 0.1 x10^3/uL (0.0-0.7) Basophils # (Auto) 0.0 x10^3/uL (0.0-0.2) 0.0 x10^3/uL (0.0-0.2) Sodium Level 141 mmol/L (136-145) 144 mmol/L (136-145) Potassium Level 4.0 mmol/L (3.5-5.1) 3.9 mmol/L (3.5-5.1) Chloride Level 105 mmol/L (98-107) 104 mmol/L (98-107) Carbon Dioxide Level 30 mmol/L (21-32) 31 mmol/L (21-32) Anion Gap 6 (6-14) 9 (6-14) Blood Urea Nitrogen 17 mg/dL (7-20) 15 mg/dL (7-20) Creatinine 1.2 mg/dL (0.6-1.0) 1.1 mg/dL (0.6-1.0) Estimated GFR (Cockcroft-Gault) 52.0 57.5 BUN/Creatinine Ratio 14 (6-20) Glucose Level 136 mg/dL (70-99) 77 mg/dL (70-99) Calcium Level 9.4 mg/dL (8.5-10.1) 9.0 mg/dL (8.5-10.1) Magnesium Level 1.8 mg/dL (1.8-2.4) Total Bilirubin 0.7 mg/dL (0.2-1.0) Aspartate Amino Transf (AST/SGOT) 30 U/L (15-37) Alanine Aminotransferase (ALT/SGPT) 37 U/L (14-59) Alkaline Phosphatase 117 U/L (46-116) Troponin I Quantitative 0.100 ng/mL (0.000-0.055) 0.130 ng/mL (0.000-0.055) MQ-Loa-G-Type Natriuretic Peptide 7680 pg/mL (0-449) Total Protein 7.6 g/dL (6.4-8.2) Albumin 3.6 g/dL (3.4-5.0) Albumin/Globulin Ratio 0.9 (1.0-1.7) Laboratory Tests Test 06/24/20 17:50 06/25/20 06:00 White Blood Count 4.6 x10^3/uL (4.0-11.0) 4.1 x10^3/uL (4.0-11.0) Red Blood Count 3.88 x10^6/uL (3.50-5.40) 3.45 x10^6/uL (3.50-5.40) Hemoglobin 12.3 g/dL (12.0-15.5) 11.3 g/dL (12.0-15.5) Hematocrit 36.8 % (36.0-47.0) 33.2 % (36.0-47.0) Mean Corpuscular Volume 95 fL (79-100) 96 fL (79-100) Mean Corpuscular Hemoglobin 32 pg (25-35) 33 pg (25-35) Mean Corpuscular Hemoglobin Concent 33 g/dL (31-37) 34 g/dL (31-37) Red Cell Distribution Width 13.7 % (11.5-14.5) 13.4 % (11.5-14.5) Platelet Count 166 x10^3/uL (140-400) 139 x10^3/uL (140-400) Neutrophils (%) (Auto) 64 % (31-73) 56 % (31-73) Lymphocytes (%) (Auto) 23 % (24-48) 28 % (24-48) Monocytes (%) (Auto) 10 % (0-9) 13 % (0-9) Eosinophils (%) (Auto) 2 % (0-3) 3 % (0-3) Basophils (%) (Auto) 1 % (0-3) 1 % (0-3) Neutrophils # (Auto) 3.0 x10^3/uL (1.8-7.7) 2.3 x10^3/uL (1.8-7.7) Lymphocytes # (Auto) 1.1 x10^3/uL (1.0-4.8) 1.1 x10^3/uL (1.0-4.8) Monocytes # (Auto) 0.5 x10^3/uL (0.0-1.1) 0.5 x10^3/uL (0.0-1.1) Eosinophils # (Auto) 0.1 x10^3/uL (0.0-0.7) 0.1 x10^3/uL (0.0-0.7) Basophils # (Auto) 0.0 x10^3/uL (0.0-0.2) 0.0 x10^3/uL (0.0-0.2) Sodium Level 141 mmol/L (136-145) 144 mmol/L (136-145) Potassium Level 4.0 mmol/L (3.5-5.1) 3.9 mmol/L (3.5-5.1) Chloride Level 105 mmol/L (98-107) 104 mmol/L (98-107) Carbon Dioxide Level 30 mmol/L (21-32) 31 mmol/L (21-32) Anion Gap 6 (6-14) 9 (6-14) Blood Urea Nitrogen 17 mg/dL (7-20) 15 mg/dL (7-20) Creatinine 1.2 mg/dL (0.6-1.0) 1.1 mg/dL (0.6-1.0) Estimated GFR (Cockcroft-Gault) 52.0 57.5 BUN/Creatinine Ratio 14 (6-20) Glucose Level 136 mg/dL (70-99) 77 mg/dL (70-99) Calcium Level 9.4 mg/dL (8.5-10.1) 9.0 mg/dL (8.5-10.1) Magnesium Level 1.8 mg/dL (1.8-2.4) Total Bilirubin 0.7 mg/dL (0.2-1.0) Aspartate Amino Transf (AST/SGOT) 30 U/L (15-37) Alanine Aminotransferase (ALT/SGPT) 37 U/L (14-59) Alkaline Phosphatase 117 U/L (46-116) Troponin I Quantitative 0.100 ng/mL (0.000-0.055) 0.130 ng/mL (0.000-0.055) WM-Ipd-E-Type Natriuretic Peptide 7680 pg/mL (0-449) Total Protein 7.6 g/dL (6.4-8.2) Albumin 3.6 g/dL (3.4-5.0) Albumin/Globulin Ratio 0.9 (1.0-1.7) Images Images Bilateral lower extremity venous Doppler: Grayscale and Doppler analysis of the both lower extremity deep venous systems was performed with graded compression and augmentation. The common femoral, greater saphenous, superficial femoral, popliteal and calf veins were assessed. There is no evidence of deep venous thrombosis. Subcutaneous edema is noted. IMPRESSION: 1. No evidence of deep venous thrombosis. CXR: Moderate cardiomegaly is stable. Atherosclerotic calcifications of the tortuous aorta are seen. Bilateral pleural effusions and associated lung base opacities are now seen. Mild perihilar opacities with interstitial prominence. No pneumothorax. IMPRESSION: Constellation of findings is suspicious for pulmonary edema or multifocal consolidative process. VTE Prophylaxis Ordered VTE Prophylaxis Devices: No VTE Pharmacological Prophylaxi: Yes Assessment/Plan Assessment/Plan A/P: Acute respiratory failure with hypoxia - will wean O2 as tolerated, likely all CHF related. Acute on chronic diastolic CHF - prior echo with preserved EF. Will continue IV duresis, strict I/O, daily weights, cardiology consulted Troponin elevation - likely demand ischemia due to acute CHF, will consult cardiology Cor pulmonale - severe pulmonary HTN with RVSP 67 mmHg on right heart cath previ ously. Will need diuresis ERINN - nocturnal o2 Hypertension - cont home meds Hyperlipidemia - cont statin h/o PAFIB - sinus currently CKD - stable FEN - Cardiac diet, 2L fluid restriction PPX - heparin DNR/DNI Dispo - inpatient CVC at least 2 midnights Justifications for Admission Other Justification LUIS DANIEL ANGELO MD Jun 25, 2020 10:52
[2020-06-25 11:00] VITALS: BP 114/57
--- NOTE | 2020-06-25 12:50 | NUR ---
SS following for discharge planning. SS reviewed pt chart and discussed with pt RN. Pt is from home with family and is currently requiring oxygen. Cardiology following. SS will continue to follow for discharge planning.
[2020-06-25 15:00] VITALS: BP 122/56
[2020-06-25 19:35] VITALS: BP 125/72
[2020-06-25] MEDS: PANTOPRAZOLE 40 MG TABLET.DR. PO SCH (21:31)
[2020-06-25] MEDS: ATORVASTATIN CALCIUM 10 MG TABLET. PO SCH (21:31)
[2020-06-25 22:22] VITALS: BP 135/67
[2020-06-26 03:30] VITALS: BP 135/58
[2020-06-26 04:56] LABS: CALCIUM 8.8 mg/dL (8.5-10.1); CREATININE 1.2 mg/dL (0.6-1.0); MAGNESIUM 1.7 mg/dL (1.8-2.4); POTASSIUM 3.6 mmol/L (3.5-5.1)
[2020-06-26 07:00] VITALS: BP 128/77
--- NOTE | 2020-06-26 08:26 | PDOC ---
[facility] PROGRESS NOTE Date of Service DOS: DATE: 06/26/20 TIME: 08:25 Chief Complaint Chief Complaint A/P: Acute respiratory failure with hypoxia - will wean O2 as tolerated, likely all CHF related. Acute on chronic diastolic CHF - prior echo with preserved EF. Will continue IV duresis, strict I/O, daily weights, cardiology consulted Troponin elevation - likely demand ischemia due to acute CHF, will consult cardiology Cor pulmonale - severe pulmonary HTN with RVSP 67 mmHg on right heart cath previously. Will need diuresis ERINN - nocturnal o2 Hypertension - cont home meds Hyperlipidemia - cont statin h/o PAFIB - sinus currently CKD - stable FEN - Cardiac diet, 2L fluid restriction PPX - heparin DNR/DNI Dispo - inpatient CVC at least 2 midnights History of Present Illness History of Present Illness Ms Haji is an 80 yo female w/ PMHx HTN, GERD, paroxysmal afib, diastolic CHF, cor pulmonale who presented secondary to shortness of breath and LE edema. She has also noted weight gain over the past 2 days. Eating a lot of watermelon and cantaloupe recently and drinking more fluids. She notes progressive orthopnea over the past week as well. Denies chest pain, palpitations, dizziness, diaphoresis, or nausea/vomiting. She does note back pain, only while laying flat. Labs significant for troponin 0.130 and BNP 7680, Hb 11.3, Cr 1.1. Venous dopplers negative for DVT, CXR with bilateral pleural effusions and associated perihilar opacities with interstitial prominence as well as cardiomegaly. EKG sinus rhythm with no abnormal st segment changes or TWI. Left axis deviation noted. Admitted for further care. 1160 mL UOP on 06/24 UOP 2450 past 24 hours. Swelling improved. Still on 3L NCO2. Mag 1.7 today. No chest pain, slight improvement in dyspnea. Vitals/I&O Vitals/I&O: Vital Signs Date Time Temp Pulse Resp B/P (MAP) Pulse Ox O2 Delivery O2 Flow Rate FiO2 06/26/20 07:00 97.9 61 20 128/77 (94) 100 Nasal Cannula 2.0 97.9 I & O 06/25/20 06/25/20 06/26/20 15:00 23:00 07:00 Intake Total 550 ml 250 ml 50 ml Output Total 800 ml 1200 ml 450 ml Balance -250 ml -950 ml -400 ml Physical Exam General: Alert, Oriented X3, Cooperative, mild distress Lungs: Clear Abdomen: Normal bowel sounds, Soft, No tenderness, No hepatosplenomegaly, No masses Extremities: No clubbing, No cyanosis, Normal pulses, No tenderness/swelling, Other (3+ edema) Skin: No rashes, No breakdown, No significant lesion Labs Labs: Laboratory Tests Test 06/26/20 04:20 Sodium Level 141 mmol/L (136-145) Potassium Level 3.6 mmol/L (3.5-5.1) Chloride Level 103 mmol/L (98-107) Carbon Dioxide Level 34 mmol/L (21-32) Anion Gap 4 (6-14) Blood Urea Nitrogen 17 mg/dL (7-20) Creatinine 1.2 mg/dL (0.6-1.0) Estimated GFR (Cockcroft-Gault) 52.0 Glucose Level 90 mg/dL (70-99) Calcium Level 8.8 mg/dL (8.5-10.1) Magnesium Level 1.7 mg/dL (1.8-2.4) Assessment and Plan Assessmemt and Plan Problems Medical Problems: (1) CHF (congestive heart failure) Status: Acute Comment Review of Relevant I have reviewed the following items perico (where applicable) has been applied. Medications: Current Medications Medications (Trade) Dose Ordered Sig/Moe Route PRN Reason Start Time Stop Time Status Last Admin Dose Admin Acetaminophen (Tylenol) 325 mg BID PO 06/25/20 09:00 06/25/20 08:19 Furosemide (Lasix) 40 mg DAILY PO 06/25/20 09:00 06/25/20 10:11 DC 06/25/20 08:20 Propranolol HCl (Inderal La) 60 mg DAILY PO 06/25/20 09:00 06/25/20 08:20 Spironolactone (Aldactone) 25 mg DAILY PO 06/25/20 09:00 06/25/20 08:20 Tramadol HCl (Ultram) 37.5 mg BID PO 06/25/20 09:00 06/25/20 21:31 Pantoprazole Sodium (Protonix) 40 mg HS PO 06/25/20 21:00 06/25/20 21:31 Atorvastatin Calcium (Lipitor) 10 mg QHS PO 06/25/20 21:00 06/25/20 21:31 Furosemide (Lasix) 40 mg BID92 IVP 06/25/20 10:15 06/25/20 14:42 Justifications for Admission Other Justification LUIS DANIEL ANGELO MD Jun 26, 2020 08:26
[2020-06-26] MEDS: POTASSIUM CHLORIDE 20 MEQ TABLET.ER. PO SCH (08:48)
[2020-06-26] MEDS: ASPIRIN ENTERIC COATED 81 MG TABLET.DR. PO SCH (08:48)
[2020-06-26] MEDS: SPIRONOLACTONE 25 MG TABLET PO SCH (08:49)
[2020-06-26] MEDS: ACETAMINOPHEN 325 MG TABLET. PO SCH ×2 (08:49→21:02)
[2020-06-26] MEDS: FUROSEMIDE 40 MG/4 ML VIAL. IVP SCH (08:49)
[2020-06-26] MEDS: PROPRANOLOL ER 60 MG CAP.SA.24H. PO SCH (08:50)
[2020-06-26] MEDS: traMADol 50 MG TABLET PO SCH (08:50)
[2020-06-26] MEDS ORDERED: MAGNESIUM SULFATE 2GM 50 ML IV ONE (09:00)
[2020-06-26 11:00] VITALS: BP 91/73
[2020-06-26] MEDS ORDERED: MAGNESIUM CITRATE 296 ML SOLUTION. PO PRN (11:45)
--- NOTE | 2020-06-26 13:30 | NUR ---
SW following. Discussed with RN, pt from home with family, cardiac diet, 2L oxygen which pt does not wear at home. PT/OT ordered. Pt getting IV mag today. SW will continue to follow.
[2020-06-26 15:00] VITALS: BP 120/38
[2020-06-26] MEDS ORDERED: traMADol 50 MG TABLET PO PRN (15:00)
--- NOTE | 2020-06-26 16:19 | PDOC ---
CARDIO Progress Notes Date and Time Date of Service 06/26/2020 Time of Evaluation 1600 Subjective Subjective: No Chest Pain, No shortness of breath, No Palpitations, Other (still has some SOA with activity but feels better) Vitals Vitals Vital Signs Date Time Temp Pulse Resp B/P (MAP) Pulse Ox O2 Delivery O2 Flow Rate FiO2 06/26/20 15:00 97.8 59 20 120/38 (65) 94 Nasal Cannula 2.0 97.8 Weight Weight [ ] Input and Output Intake and Output Intake and Output 06/26/20 07:00 Intake Total 850 ml Output Total 2450 ml Balance -1600 ml Intake Oral 850 ml Output Urine Total 2450 ml Laboratory Labs Laboratory Tests Test 06/26/20 04:20 Sodium Level 141 mmol/L (136-145) Potassium Level 3.6 mmol/L (3.5-5.1) Chloride Level 103 mmol/L (98-107) Carbon Dioxide Level 34 mmol/L (21-32) Anion Gap 4 (6-14) Blood Urea Nitrogen 17 mg/dL (7-20) Creatinine 1.2 mg/dL (0.6-1.0) Estimated GFR (Cockcroft-Gault) 52.0 Glucose Level 90 mg/dL (70-99) Calcium Level 8.8 mg/dL (8.5-10.1) Magnesium Level 1.7 mg/dL (1.8-2.4) Physical Exam HEENT: Neck Supple W Full Motion Chest: Symmetric LUNGS: Other (diminished) Heart: S1S2, RRR (SR) Abdomen: Soft N/T, Other (Obese) Extremities: No Calf Tenderness, Other (2+ bilateral Le pitting edema) Neurology: alert, oriented, follow commands Assessment Assessment 1. Acute respiratory failure with acute on chronic diastolic CHF; LVEF 50% per echo 09/26. Secondary to diet noncompliance 2. Cor pulmonale with severe pulmonary HTN; PAP 67 mmHg 3. ERINN 4. Hypertension; controlled 5. Hyperlipidemia; statin 6. PAFIB; maintaining SR 7. Mild troponin elevation; highest 0.130. Most probably type II, demand i schemia in setting of acute CHF. CP free. Recent cath without evidence of CAD as noted above 8. CKD3 Recommendations Convert to PO lasix. Continue aldactone. Replace Mg 6 minute walk 2Gm Na diet, 2000cc FR Encouraged weight loss. Continue home bipap Routine outpatient echo to assess LV systolic function Follow up with Dr. Trotter on July 30 at 1115 Justicifation of Admission Dx: Justifications for Admission: Justification of Admission Dx: Yes (chf, positive troponin) TAM SALES APRN Jun 26, 2020 16:19
[2020-06-26 19:30] VITALS: BP 121/55
[2020-06-26] MEDS: ATORVASTATIN CALCIUM 10 MG TABLET. PO SCH (21:02)
[2020-06-26] MEDS: PANTOPRAZOLE 40 MG TABLET.DR. PO SCH (21:02)
[2020-06-26 23:04] VITALS: BP 119/37
[2020-06-27 03:36] VITALS: BP 93/35
[2020-06-27 03:39] VITALS: BP 123/51
[2020-06-27 07:00] VITALS: BP 112/54
--- NOTE | 2020-06-27 07:57 | PDOC ---
[employer] PROGRESS NOTE Date of Service DOS: DATE: 06/27/20 TIME: 07:57 Chief Complaint Chief Complaint A/P: Acute respiratory failure with hypoxia - will wean O2 as tolerated, likely all CHF related. Acute on chronic diastolic CHF - prior echo with preserved EF. Will continue IV duresis, strict I/O, daily weights, cardiology consulted Troponin elevation - likely demand ischemia due to acute CHF, will consult cardiology Cor pulmonale - severe pulmonary HTN with RVSP 67 mmHg on right heart cath previously. Will need diuresis ERINN - nocturnal o2 Hypertension - cont home meds Hyperlipidemia - cont statin h/o PAFIB - sinus currently CKD - stable FEN - Cardiac diet, 2L fluid restriction PPX - heparin DNR/DNI Dispo - inpatient CVC at least 2 midnights History of Present Illness History of Present Illness Ms Haji is an 80 yo female w/ PMHx HTN, GERD, paroxysmal afib, diastolic CHF, cor pulmonale who presented secondary to shortness of breath and LE edema. She has also noted weight gain over the past 2 days. Eating a lot of watermelon and cantaloupe recently and drinking more fluids. She notes progressive orthopnea over the past week as well. Denies chest pain, palpitations, dizziness, diaphoresis, or nausea/vomiting. She does note back pain, only while laying flat. Labs significant for troponin 0.130 and BNP 7680, Hb 11.3, Cr 1.1. Venous dopplers negative for DVT, CXR with bilateral pleural effusions and associated perihilar opacities with interstitial prominence as well as cardiomegaly. EKG sinus rhythm with no abnormal st segment changes or TWI. Left axis deviation noted. Admitted for further care. 1160 mL UOP on 06/24 06/26: UOP 2450 past 24 hours. Swelling improved. Still on 3L NCO2. Mag 1.7 today. No chest pain, slight improvement in dyspnea. Still with good urine output. Had some confusion overnight when she pulled her oxygen off. Today feeling much better. Had multiple bowel movement overnight. PT OT recommend home health. Vitals/I&O Vitals/I&O: Vital Signs Date Time Temp Pulse Resp B/P (MAP) Pulse Ox O2 Delivery O2 Flow Rate FiO2 06/27/20 03:39 97.6 60 18 123/51 (75) 94 Nasal Cannula 2.0 97.6 I & O 06/26/20 06/26/20 06/27/20 15:00 23:00 07:00 Intake Total 540 ml 400 ml 200 ml Output Total 900 ml Balance -360 ml 400 ml 200 ml Physical Exam General: Alert, Oriented X3, Cooperative, mild distress Lungs: Clear Abdomen: Normal bowel sounds, Soft, No tenderness, No hepatosplenomegaly, No masses Extremities: No clubbing, No cyanosis, Normal pulses, No tenderness/swelling, Other (3+ edema) Skin: No rashes, No breakdown, No significant lesion Assessment and Plan Assessmemt and Plan Problems Medical Problems: (1) CHF (congestive heart failure) Status: Acute Comment Review of Relevant I have reviewed the following items perico (where applicable) has been applied. Medications: Current Medications Medications (Trade) Dose Ordered Sig/Moe Route PRN Reason Start Time Stop Time Status Last Admin Dose Admin Magnesium Sulfate 50 ml @ 25 mls/hr 1X ONCE IV 06/26/20 09:00 06/26/20 10:59 DC 06/26/20 09:42 Magnesium Citrate (Citroma) 296 ml PRN 1X PRN PO CONSTIPATION 06/26/20 11:45 06/26/20 12:48 Justifications for Admission Other Justification LUIS DANIEL ANGELO MD Jun 27, 2020 07:57
[2020-06-27] MEDS: POTASSIUM CHLORIDE 20 MEQ TABLET.ER. PO SCH (08:51)
[2020-06-27] MEDS: ACETAMINOPHEN 325 MG TABLET. PO SCH (08:52)
[2020-06-27] MEDS: ASPIRIN ENTERIC COATED 81 MG TABLET.DR. PO SCH (08:52)
[2020-06-27] MEDS: SPIRONOLACTONE 25 MG TABLET PO SCH (08:52)
[2020-06-27] MEDS: PROPRANOLOL ER 60 MG CAP.SA.24H. PO SCH (08:55)
[2020-06-27] MEDS ORDERED: FUROSEMIDE 40 MG TABLET. PO SCH (09:00)
[2020-06-27 11:00] VITALS: BP 126/46
--- NOTE | 2020-06-27 11:57 | SNU/HH DC ---
DISCHARGE WITH HOME HEALTH DISCHARGE INFORMATION: Discharge Date: Jun 27, 2020 Final Diagnosis: Problems Medical Problems: (1) CHF (congestive heart failure) Status: Acute Condition on Discharge: Stable CODE STATUS: Code Status: DNR/DNI HOME HEALTH: Face to Face: I certify this patient is under my care and that I, or a nurse practitioner or physician's advertising assistant manager working with me, had a face to face encounter that meets the physician face to face encounter requirements with this patient on 06/27/2020. Medical Complications: CHF RN For Eval/Treatment: Yes Physical Therapy For: Evalulation/Treatment Occupational Therapy For: Evaluation/Treatment Pt Meets Homebound Status: Limited distance walking POST DISCHARGE ORDERS: Activity Instructions for Disc: Other, see below Weight Bearing Status after Di: Other, see below Bathing Instructions: No Tub Bath until see DIET AFTER DISCHARGE: Cardiac Wound/Incision Care: No wound care needed CHECKS AFTER DISCHARGE: Checks after discharge: Check blood press - daily, Weigh Yourself Daily TREATMENT/EQUIPMENT ORDERS: Adaptive Equipment Issued: None Discharge Respiratory Equipmen: Oxygen (2L), BiPAP (QHS) CERTIFICATION STATEMENT: Certification Statement: Certification Statement: Based on the above finding, I certify that this patient is confined to the home and needs intermittent correction care, physical therapy and/or speech therapy, or continues to need occupational therapy.~ This patient is under my care, and I have initiated the establishment of the plan of care.~ This patient will be followed by myself or a community physician who will periodically review the plan of care. Home Meds Reported Medications Potassium Chloride (KLOR-CON M20) 20 Meq Tab.er.prt, 20 MEQ PO DAILY for 06/24/20 Propranolol Hcl (PROPRANOLOL HCL) 60 Mg Cap.sa.24h, 60 MG PO DAILY for 06/24/20 Spironolactone (SPIRONOLACTONE) 25 Mg Tablet, 1 TAB PO DAILY for 06/24/20 Furosemide (FUROSEMIDE) 40 Mg Tablet, 1 TAB PO DAILY for 06/24/20 Pravastatin Sodium (PRAVASTATIN SODIUM) 40 Mg Tablet, 1 TAB PO QHS for cholesterol, #90 TAB 1 Refill 11/04/19 Celecoxib (CELEBREX) 100 Mg Capsule, 2 CAP PO DAILY for arthritis, #60 CAP 3 Refills 09/15/19 Omeprazole (OMEPRAZOLE) 20 Mg Tablet.dr, 1 TAB PO HS, #90 TAB 1 Refill 09/15/19 Acetaminophen (TYLENOL) 325 Mg Tablet, 1 TAB PO BID, #30 TAB 09/15/19 Tramadol Hcl (TRAMADOL HCL) 50 Mg Tablet, 37.5 MG PO BID, TAB 0 Refills 09/15/19 Aspirin (ASPIR-LOW) 81 Mg Tablet., 1 TAB PO DAILY, #30 TAB 3 Refills 09/15/19 LUIS DANIEL ANGELO MD Jun 27, 2020 11:57
--- NOTE | 2020-06-27 12:02 | PDOC3 ---
Discharge Summary Visit Information Date of Admission: Jun 24, 2020 Date of Discharge: Jun 27, 2020 Admitting Diagnosis: Acute CHF Final Diagnosis Problems Medical Problems: (1) CHF (congestive heart failure) Status: Acute Brief Hospital Course Allergies Allergies Coded Allergies Type Severity Reaction Last Updated Verified sertraline Adverse Reaction Intermediate hallucinations 11/04/19 Yes Vital Signs Vital Signs Date Time Temp Pulse Resp B/P (MAP) Pulse Ox O2 Delivery O2 Flow Rate FiO2 06/27/20 11:00 97.8 58 16 126/46 (72) 100 Nasal Cannula 2.0 97.8 Lab Results Laboratory Tests Test 06/26/20 04:20 Sodium Level 141 mmol/L (136-145) Potassium Level 3.6 mmol/L (3.5-5.1) Chloride Level 103 mmol/L (98-107) Carbon Dioxide Level 34 mmol/L (21-32) Anion Gap 4 (6-14) Blood Urea Nitrogen 17 mg/dL (7-20) Creatinine 1.2 mg/dL (0.6-1.0) Estimated GFR (Cockcroft-Gault) 52.0 Glucose Level 90 mg/dL (70-99) Calcium Level 8.8 mg/dL (8.5-10.1) Magnesium Level 1.7 mg/dL (1.8-2.4) Brief Hospital Course Ms Haji is an 80 yo female w/ PMHx HTN, GERD, paroxysmal afib, diastolic CHF, cor pulmonale who presented secondary to shortness of breath and LE edema. She has also noted weight gain over the past 2 days. Eating a lot of watermelon and cantaloupe recently and drinking more fluids. She notes progressive orthopnea over the past week as well. Denies chest pain, palpitations, dizziness, diaphoresis, or nausea/vomiting. She does note back pain, only while laying flat. Labs significant for troponin 0.130 and BNP 7680, Hb 11.3, Cr 1.1. Venous dopplers negative for DVT, CXR with bilateral pleural effusions and associated perihilar opacities with interstitial prominence as well as cardiomegaly. EKG sinus rhythm with no abnormal st segment changes or TWI. Left axis deviation noted. Admitted for further care. 1160 mL UOP on 06/24 06/26: UOP 2450 past 24 hours. Swelling improved. Still on 3L NCO2. Mag 1.7 today. No chest pain, slight improvement in dyspnea. Still with good urine output. Had some confusion overnight when she pulled her oxygen off. Today feeling much better. Had multiple bowel movement overnight. PT OT recommend home health. Problem: Acute respiratory failure with hypoxia - will wean O2 as tolerated, likely all CHF related. Acute on chronic diastolic CHF - prior echo with preserved EF. Cont po diuresis, strict I/O, daily weights, cardiology consulted Troponin elevation - likely demand ischemia due to acute CHF, will consult cardiology Cor pulmonale - severe pulmonary HTN with RVSP 67 mmHg on right heart cath previously. Will need diuresis and home O2 2L continuous ERINN - nocturnal BIPAP Hypertension - cont home meds Hyperlipidemia - cont statin h/o PAFIB - sinus currently CKD - stable Greater than 30 minutes spent on d/c home with home health Discharge Information Condition at Discharge: Improved Follow Up: Weeks (1) Disposition/Orders: D/C to Home w/ HH Scheduled Acetaminophen (Tylenol) 325 Mg Tablet, 1 TAB PO BID, #30 (Reported) Entered as Reported by: Thao Casey on [birth year]27 Last Action: Continued on 06/25/202236 by EMILY HOROWITZ MD Aspirin (Aspir-Low) 81 Mg Tablet.dr, 1 TAB PO DAILY, #30 Ref 3 (Reported) Entered as Reported by: Thao Casey on 09/15/1924 Last Action: Continued on 06/25/202236 by EMILY HOROWITZ MD Celecoxib (Celebrex) 100 Mg Capsule, 2 CAP PO DAILY for arthritis, #60 Ref 3 (Reported) Entered as Reported by: Thao Casey on 09/15/1927 Last Action: HELD on 06/25/202236 by EMILY HOROWITZ MD Furosemide (Furosemide) 40 Mg Tablet, 1 TAB PO DAILY for , (Reported) Entered as Reported by: KIET SHEFFIELD RN on 06/24/202208 Last Action: Continued on 06/25/202236 by EMILY HOROWITZ MD Omeprazole (Omeprazole) 20 Mg Tablet.dr, 1 TAB PO HS, #90 Ref 1 (Reported) Entered as Reported by: Thao Casey on 09/[birth year]27 Last Action: Converted on 06/25/202236 by EMILY HOROWITZ MD Potassium Chloride (Klor-Con M20) 20 Meq Tab.er.prt, 20 MEQ PO DAILY for , (Reported) Entered as Reported by: KIET SHEFFIELD RN on 06/24/202236 Last Action: Continued on 06/25/20 0001 by EMILY HOROWITZ MD Pravastatin Sodium (Pravastatin Sodium) 40 Mg Tablet, 1 TAB PO QHS for cholesterol, #90 Ref 1 (Reported) Entered as Reported by: RAMONA CHAIREZ on 11/04/191833 Last Action: Converted on 06/25/202236 by EMILY HOROWITZ MD Propranolol Hcl (Propranolol Hcl) 60 Mg Cap.sa.24h, 60 MG PO DAILY for , (Reported) Entered as Reported by: KIET SHEFFIELD RN on 06/24/202234 Last Action: Continued on 06/25/202236 by EMILY HOROWITZ MD Spironolactone (Spironolactone) 25 Mg Tablet, 1 TAB PO DAILY for , (Reported) Entered as Reported by: KIET SHEFFIELD RN on 06/24/202234 Last Action: Continued on 06/25/20 0001 by EMILY HOROWITZ MD Tramadol Hcl (Tramadol Hcl) 50 Mg Tablet, 37.5 MG PO BID, Ref 0 (Reported) Entered as Reported by: Thao Casey on 09/15/19 0028 Last Action: Continued on 06/25/202236 by EMILY HOROWITZ MD Justicifation of Admission Dx: Justifications for Admission: Justification of Admission Dx: Yes (chf, positive troponin) LUIS DANIEL ANGELO MD Jun 27, 2020 12:01
[2020-06-27 14:49] VITALS: BP 124/49
== END 2020-06-27 19:19 | disposition home health service (06) | DRG 291 ==
LOC: ER 17:05 → ED HOLD 19:41 → 2 NORTH 21:38 → 2 SOUTH 06-26 13:12 → 2 NORTH 06-26 13:19
PROVIDERS: ADMIT Family Medicine; ATTEND Family Medicine
DX: I13.0 Hypertensive heart and chronic kidney disease with heart failure and stage 1 through stage 4 chronic kidney disease, or unspecified chronic kidney disease (principal); I50.33 Acute on chronic diastolic (congestive) heart failure; J96.01 Acute respiratory failure with hypoxia; I24.8 Other forms of acute ischemic heart disease; E78.5 Hyperlipidemia, unspecified; G47.33 Obstructive sleep apnea (adult) (pediatric); I27.29 Other secondary pulmonary hypertension; I27.81 Cor pulmonale (chronic); I48.0 Paroxysmal atrial fibrillation; N18.3 Chronic kidney disease, stage 3 (moderate); Z66 Do not resuscitate; Z82.49 Family history of ischemic heart disease and other diseases of the circulatory system; Z85.43 Personal history of malignant neoplasm of ovary; Z90.710 Acquired absence of both cervix and uterus; Z91.11 Patient's noncompliance with dietary regimen; Z96.649 Presence of unspecified artificial hip joint; Z96.659 Presence of unspecified artificial knee joint; F32.9 Major depressive disorder, single episode, unspecified; F41.9 Anxiety disorder, unspecified; K21.9 Gastro-esophageal reflux disease without esophagitis; M19.90 Unspecified osteoarthritis, unspecified site; Z88.8 Allergy status to other drugs, medicaments and biological substances
CPT/HCPCS: 36415; 71045; 80048; 80053; 83735; 83880; 84484; 85025; 93005; 93970; 94618; 96374; 96375; 99285; J1940; J2405; J3475; 97116-GP; 97530-GP; G0378

== ENCOUNTER → 2020-07-23 | Outpatient (CLI) | payer MEDICARE, BC ==
[2020-06-27 14:49] VITALS: BP 124/49
[~2020-07-23] MED LIST changes: +FURO40TA4 PO; +PROP60CA44 PO; +SPIR25TA5 PO
--- NOTE | 2020-07-23 16:27 | CARD ---
MR#: [id number] Date of Study: 07/23/2020 Ordering Physician: RIVERA TROTTER, Referring Physician: RIVERA TROTTER, Tech: Lucía Velasquez APPROVED REPORT EXAM: Two-dimensional and M-mode echocardiogram with Doppler and color Doppler. Other Information Quality : AverageHR: 49bpm Technically limited study due to body habitus. INDICATION Congestive Heart Failure 2D DIMENSIONS RVDd4.0 (2.9-3.5cm)Left Atrium(2D)4.9 (1.6-4.0cm) IVSd1.5 (0.7-1.1cm)Aortic Root(2D)3.0 (2.0-3.7cm) LVDd5.2 (3.9-5.9cm)LVOT Diameter1.9 (1.8-2.4cm) PWd1.3 (0.7-1.1cm)LVDs3.6 (2.5-4.0cm) FS (%) 30.2 %SV73.9 ml LVEF(%)57.2 (>50%) Aortic Valve AoV Peak Lanre.124.0cm/sAoV VTI26.9cm AO Peak GR.6.2mmHgLVOT Peak Lanre.92.9cm/s LVOT VTI 18.20cmAO Mean GR.4mmHg BABATUNDE (VMAX)1.05ue3ADK (VTI)2.00cm2 AI P 1/2 [id number] Mitral Valve MV E Wrlqgvns510.1cm/sMV E Peak Gr.56mmHg MV DECEL [id number] A Gnybytci85.5cm/s MV MNM93zsC/A Ratio4.4 MVA (PHT)4.32cm2 TDI E/Lateral E'20.3E/Medial E'27.5 Pulmonary Valve PV Peak Jfdbfrzf62.7cm/sPV Peak Grad.3mmHg Tricuspid Valve TR P. Dljkuykg449ji/sRAP ACONMWJI2mjAw TR Peak Gr.29rjVtONRP77deWd Pulmonary Vein S1 Pnrslazd93.1cm/sD2 Yuocmvmp97.5cm/s LEFT VENTRICLE The left ventricle is normal size. There is moderate concentric left ventricular hypertrophy. The lef t ventricular systolic function is normal and the ejection fraction is within normal range. The Eject ion Fraction is 50-55%. There is normal LV segmental wall motion. Tissue Doppler imaging reveals mode rate left ventricular diastolic dysfunction. RIGHT VENTRICLE The right ventricle is normal size. There is normal right ventricular wall thickness. The right ventr icular systolic function is normal. ATRIA The left atrium is mildly dilated. The right atrium is moderately dilated. The interatrial septum is intact with no evidence for an atrial septal defect or patent foramen ovale as noted on 2-D or Dopple r imaging. AORTIC VALVE The aortic valve is thickened but opens well. Doppler and Color Flow revealed trace aortic regurgitat ion. There is no significant aortic valvular stenosis. MITRAL VALVE The mitral valve is normal in structure and function. There is no evidence of mitral valve prolapse. There is no mitral valve stenosis. Doppler and Color-flow revealed trace mitral regurgitation. TRICUSPID VALVE The tricuspid valve is normal in structure and function. Doppler and Color Flow revealed mild tricusp id regurgitation with an estimated PAP >55 mmHg. There is no tricuspid valve stenosis. PULMONIC VALVE The pulmonic valve is not well visualized. Doppler and Color Flow revealed trace pulmonic valvular re gurgitation. GREAT VESSELS The aortic root is normal in size. The IVC is dilated. PERICARDIAL EFFUSION There is no evidence of significant pericardial effusion. Critical Notification Critical Value: No <Conclusion> The left ventricle is normal size. The left ventricular systolic function is normal and the ejection fraction is within normal range. The Ejection Fraction is 50-55%. There is normal LV segmental wall motion. There is moderate concentric left ventricular hypertrophy. Doppler and Color Flow revealed trace aortic regurgitation. There is no significant aortic valvular stenosis. Doppler and Color-flow revealed trace mitral regurgitation. Doppler and Color Flow revealed mild tricuspid regurgitation with an estimated PAP >55 mmHg. Signed by : Rivera Trotter MD Electronically Approved : 07/23/2020 16:27:27
== END ==
LOC: ECHO 10:28
PROVIDERS: ATTEND Internal Medicine Cardiovascular Disease
DX: I07.1 Rheumatic tricuspid insufficiency (principal); I50.32 Chronic diastolic (congestive) heart failure
CPT/HCPCS: 93306

== ENCOUNTER → 2021-02-10 | Outpatient (CLI) | payer MEDICARE, BC ==
--- NOTE | 2021-02-10 16:56 | KCIC ---
EXAM: PA and Lateral Views of the Chest DATE: 02/10/2021 10:02 AM INDICATION: Shortness of air, sleep apnea. COMPARISON: 06/24/2020 11/04/2019 FINDINGS/ IMPRESSION: 1. Marked cardiomegaly. Atherosclerotic calcifications of the tortuous aorta are seen. 2. Trace right pleural effusion. Patchy opacities right greater than left lung base possibly atelect asis or developing consolidation. However, favor atelectasis. 3. No pneumothorax. Electronically signed by: Marino Loja MD (02/10/2021 4:54 PM) [email or web address]
== END ==
LOC: KCIC 09:55
PROVIDERS: ATTEND Internal Medicine Critical Care Medicine
DX: R06.02 Shortness of breath (principal); I51.7 Cardiomegaly; I70.0 Atherosclerosis of aorta; Q25.46 Tortuous aortic arch; G47.33 Obstructive sleep apnea (adult) (pediatric)
CPT/HCPCS: 71046

== ENCOUNTER → 2022-02-09 | Outpatient (CLI) | payer MEDICARE, BC ==
[~2022-02-09] MED LIST changes: -OMEP20TA8 PO; +OMEP20TA91 PO; +POTA-121 PO; -POTA20TA4 PO
--- NOTE | 2022-02-09 16:48 | KCIC ---
EXAM: XR CHEST 2V 02/09/2022 2:24 PM CLINICAL INDICATION: Dyspnea, pulmonary edema COMPARISON: Chest radiograph 06/24/2020 TECHNIQUE: PA and lateral views of the chest FINDINGS: Cardiomegaly is unchanged. The lungs are adequately expanded. No consolidation, pleural ef fusion, or pneumothorax. Multilevel degenerative disc disease in the spine. IMPRESSION: Cardiomegaly. No pulmonary edema. Electronically signed by: Thao Marsh MD (02/09/2022 4:46 PM) [id number]
== END ==
LOC: KCIC 14:19
PROVIDERS: ATTEND Internal Medicine Critical Care Medicine
DX: I51.7 Cardiomegaly (principal); R06.00 Dyspnea, unspecified; J81.1 Chronic pulmonary edema
CPT/HCPCS: 71046